=== PATIENT | male | born 1985 | race Two or more races ===

== ENCOUNTER 2016-07-24 09:08 | Day surgery (SDC) | payer OTHER ==
[2016-07-22 14:29] VITALS: BMI 23.1
[2016-07-24] MEDS ORDERED: BUPIVACAINE HCL/PF 2.5 MG/ML - 30 ML VIAL IJ ONE (10:13)
[2016-07-24] MEDS ORDERED: MIDAZOLAM HCL 2 MG/2 ML SINGLE DOSE VIAL ONE (11:36)
[2016-07-24] MEDS ORDERED: PROPOFOL 20 ML ONE (11:43)
[2016-07-24] MEDS ORDERED: ceFAZolin SODIUM 1 GM VIAL ONE (11:51)
[2016-07-24] MEDS ORDERED: BUPIVACAINE HCL/PF 0.25% (2.5MG/ML) 10 ML VIAL IJ ONE (12:28)
[2016-07-24] MEDS ORDERED: KETOROLAC TROMETHAMINE 30 MG/1 ML VIAL IVPUSH ONE ×2 (12:58→13:44)
[2016-07-24] MEDS ORDERED: KETOROLAC TROMETHAMINE 30 MG/1 ML VIAL ONE (13:00)
[2016-07-24] MEDS ORDERED: oxyCODONE HCL 5 MG TABLET PO PRN ×2 (13:44)
[2016-07-24] MEDS ORDERED: ONDANSETRON 4 MG/2 ML VIAL IVPUSH PRN (13:44)
[2016-07-24] MEDS ORDERED: LACTATED RINGERS SOLUTION 1,000 ML IV SCH (13:45)
[2016-07-24 13:46] VITALS: BP 106/64; PULSE 52; TEMP 97.3
--- NOTE | 2016-07-25 13:50 | OP ---
DATE OF OPERATION: 07/24/2016 SURGEON: Ric Zhong MD RAMP SERVICE MAN: BRENNON Concepcion PREOPERATIVE DIAGNOSES: 1. Left knee medial and lateral meniscal tear. 2. Left knee cartilage injury. 3. Left knee synovitis. 4. Painful hardware intra-articular, left knee. POSTOPERATIVE DIAGNOSES: 1. Left knee medial and lateral meniscal tear. 2. Left knee cartilage injury. 3. Left knee synovitis. 4. Painful hardware intra-articular, left knee. PROCEDURES: 1. Left knee arthroscopy with partial meniscectomy of medial and lateral meniscus. 2. Left knee arthroscopy with chondroplasty. 3. Left knee arthroscopy with synovectomy/major. 4. Left knee arthroscopy with removal of painful hardware through a separate incision. FINDINGS: 1. Medial meniscus posterior horn tear/minor. 2. Lateral meniscus posterior horn tear/minor. 3. Synovitis in the patellofemoral, medial and lateral notch areas with extensive anterior synovitis in the area of protruding screw. 4. No evidence of cartilage in the medial or lateral joint line. 5. Minor antegrade two-compartment injury in the area between the medial and lateral joint along the central notch. 6. Prominent screw, previous ACL reconstruction, with prominence along the anteromedial portion of the joint line. PROCEDURE: Informed consent was obtained. The patient was taken to the operating room where the left lower extremity was prepped and draped in a sterile fashion. A tourniquet was placed on the left upper thigh but not inflated. Using standard arthroscopic technique, a lateral incision and portal were made which allowed for introduction of the camera into the suprapatellar bursa. This was then taken to the medial joint line where under direct visualization, a medial incision and portal were made. Excessive synovium noted in the medial, lateral, patellofemoral and notch area was removed by the up-biting shaver and Bovie cautery. This was found to bring inflammatory tissue into the joint surface, a source of joint pain and dysfunction. Probing of the medial and lateral meniscus found tears described in the findings. These were removed with an up-biting shaver and taken back to a stable rim. Grade 2-3 degenerative changes were treated with chondroplasty, removing all flaking surfaces with low setting Bovie used along the periphery. Grade 4 changes were treated with abrasion-plasty. All areas of the knee were once again re-examined. ADDENDUM: Patient with a prominence of the screw which created extensive scar tissue anteriorly which was debrided. A separate incision was then made over the prominence of the screw. This was taken down. The screw was removed. There was noted to be spurring in the area and a small rongeur was used for removal. Removal of screw was confirmed with C-arm fluoroscopy. The knee was then drained. A single suture was placed on all portals. A sterile dressing was placed. The patient was transferred to the recovery room without complication. RIC ZHONG M.D. [id number]
--- NOTE | 2016-07-27 11:36 | PATH ---
Surgical Pathology Report Patient Name: DELFINO JC Med. Rec. #: [id number] /Age/Gender: 1985 (Age: 30) / M Account: [id number] Location: [facility] Taken: 07/24/2016 Received: 07/24/2016 Reported: 07/27/2016 Physicians: Valdemar Garrison M.D. Specimen(s) Received LEFT KNEE ARTHROSCOPY SHAVING AND HARDWARE Clinical History Left knee internal arrangement Final Diagnosis LEFT KNEE, ARTHROSCOPIC SHAVINGS AND REMOVAL OF HARDWARE: FIBROCARTILAGE WITH MYXOID DEGENERATIVE CHANGES, AND PORTIONS OF SYNOVIUM. METALLIC SCREW CONSISTENT WITH ORTHOPEDIC HARDWARE PRESENT (GROSS ONLY). Electronically Signed Theron Calle M.D. Gross Description Received in formalin, labeled "left knee shavings and hardware," is a 4.5 x 4.0 x 0.3 cm. aggregate of jensen-yellow soft tissue fragments. Also received within the same container is a 2.7 cm in length biggs metallic screw. A dealer compliance representative portion of the soft tissue fragments is submitted in one cassette. /07/24/2016 [facility]07/24/2016
== END 2016-07-24 14:25 | disposition home or self-care (01) ==
LOC: FASU 09:08
PROVIDERS: ATTEND Orthopaedic Surgery
PROC: 0SPD04Z Removal of Internal Fixation Device from Left Knee Joint, Open Approach (ICD-10-PCS; principal; 2016-07-24 11:56)
DX: S83.242A Other tear of medial meniscus, current injury, left knee, initial encounter (principal); S83.282A Other tear of lateral meniscus, current injury, left knee, initial encounter; S83.8X2A Sprain of other specified parts of left knee, initial encounter; M65.862 Other synovitis and tenosynovitis, left lower leg; T84.84XA Pain due to internal orthopedic prosthetic devices, implants and grafts, initial encounter; X58.XXXA Exposure to other specified factors, initial encounter; Y93.9 Activity, unspecified; Y92.9 Unspecified place or not applicable
CPT/HCPCS: 88304-TC; 94760